=== PATIENT | male | born 1960 | race Caucasian/White ===

== ENCOUNTER → 2016-07-18 | Outpatient (REF) | payer MEDICAID ==
[2016-07-18 11:28] LABS: BASO % 0.7 % (0.0-1.0); EOS # 0.2 K/mm3 (0.0-0.50); EOS % 2.9 % (0.0-3.0); LARGE UNSTAINED CELL # 0.2 K/mm3 (0.0-0.4); LARGE UNSTAINED CELL % 2.7 % (0.0-4.0); LYMPH # 3.1 K/mm3 (1.5-4.5); LYMPH % 47.1 % (24.0-44.0); MEAN CORPUSCULAR HEMOGLOBIN 31.8 pg (27.0-33.0); MEAN CORPUSCULAR HGB CONC 33.5 g/dl (32.0-36.5); MEAN CORPUSCULAR VOLUME 95.1 fl (80.0-96.0); MONO # 0.5 K/mm3 (0.0-0.8); MONO % 7.4 % (0.0-5.0); NEUTROPHILS # 2.5 K/mm3 (1.8-7.7); NEUTROPHILS % 39.2 % (36.0-66.0); PLATELET COUNT, AUTOMATED 218 k/mm3 (150-450); RED CELL DISTRIBUTION WIDTH 12.5 % (11.5-14.5); WHITE BLOOD COUNT 6.5 K/mm3 (4.0-10.0)
[2016-07-18 11:41] LABS: ALBUMIN 4.1 GM/DL (3.2-5.2); ALBUMIN/GLOBULIN RATIO 1.37 (1.00-1.93); ALKALINE PHOSPHATASE 45 U/L (45-117); ALT/SGPT 27 U/L (12-78); ANION GAP 7 MEQ/L (8-16); AST/SGOT 15 U/L (15-37); BILIRUBIN,TOTAL 0.4 MG/DL (0.2-1.0); BLOOD UREA NITROGEN 14 MG/DL (7-18); CALCIUM LEVEL 8.5 MG/DL (8.5-10.1); CARBON DIOXIDE LEVEL 26 MEQ/L (21-32); CHLORIDE LEVEL 108 MEQ/L (98-107); CHOLESTEROL LEVEL 206 MG/DL (<200); CREATININE FOR GFR 1.19 MG/DL (0.70-1.30); GLOMERULAR FILTRATION RATE > 60.0 (>56); GLUCOSE, FASTING 92 MG/DL (70-105); POTASSIUM SERUM 4.4 MEQ/L (3.5-5.1); SODIUM LEVEL 141 MEQ/L (136-145); TOTAL PROTEIN 7.1 GM/DL (6.4-8.2); TRIGLYCERIDES LEVEL 270 MG/DL (<150)
[2016-07-18 11:52] LABS: VITAMIN B12 LEVEL 364 PG/ML (247-911)
== END ==
LOC: M SFHCPLAZ 09:35
PROVIDERS: ATTEND Family Medicine
DX: E53.8 Deficiency of other specified B group vitamins (principal); E78.2 Mixed hyperlipidemia; E55.9 Vitamin D deficiency, unspecified

== ENCOUNTER → 2016-07-25 | Outpatient (REF) | payer MEDICAID | LOC: M SFHCPLAZ 12:54 | PROVIDERS: ATTEND Family Medicine | DX: N40.1 Benign prostatic hyperplasia with lower urinary tract symptoms (principal) ==

== ENCOUNTER → 2016-12-16 | Outpatient (REF) | payer OTHER ==
[2016-12-16 14:04] LABS: ALBUMIN 4.4 GM/DL (3.2-5.2); ALBUMIN/GLOBULIN RATIO 1.38 (1.00-1.93); ALKALINE PHOSPHATASE 48 U/L (45-117); ALT/SGPT 23 U/L (12-78); ANION GAP 9 MEQ/L (8-16); AST/SGOT 13 U/L (15-37); BILIRUBIN,TOTAL 0.5 MG/DL (0.2-1.0); BLOOD UREA NITROGEN 15 MG/DL (7-18); CALCIUM LEVEL 10.2 MG/DL (8.5-10.1); CARBON DIOXIDE LEVEL 29 MEQ/L (21-32); CHLORIDE LEVEL 105 MEQ/L (98-107); CREATININE FOR GFR 1.13 MG/DL (0.70-1.30); GLOMERULAR FILTRATION RATE > 60.0 (>56); GLUCOSE, FASTING 84 MG/DL (70-105); POTASSIUM SERUM 4.5 MEQ/L (3.5-5.1); SODIUM LEVEL 143 MEQ/L (136-145); TOTAL PROTEIN 7.6 GM/DL (6.4-8.2)
[2016-12-16 14:31] LABS: MEAN CORPUSCULAR HEMOGLOBIN 33.1 pg (27.0-33.0); MEAN CORPUSCULAR HGB CONC 34.5 g/dl (32.0-36.5); RED CELL DISTRIBUTION WIDTH 12.6 % (11.5-14.5)
[2016-12-16 14:52] LABS: VITAMIN B12 LEVEL 261 PG/ML (247-911)
[2016-12-16 15:28] LABS: PRETREATED FOLATE FOR RBCFOL 11.5 NG/ML
== END ==
LOC: M SFHCPLAZ 11:15
PROVIDERS: ATTEND Family Medicine
DX: L29.9 Pruritus, unspecified (principal); N18.2 Chronic kidney disease, stage 2 (mild); R73.01 Impaired fasting glucose; E53.8 Deficiency of other specified B group vitamins

== ENCOUNTER → 2017-06-27 | Outpatient (CLI) | payer OTHER ==
[2017-06-27 13:58] LABS: BASO % 0.6 % (0.0-1.0); EOS # 0.3 10^3/uL (0.0-0.50); EOS % 4.4 % (0.0-3.0); HEMATOCRIT 42.9 % (42.0-52.0); HEMOGLOBIN 14.9 g/dl (14.0-18.0); IMMATURE GRANULOCYTE % 0.3 % (0-3.0); LYMPH # 2.3 10^3/uL (1.5-4.5); MEAN CORPUSCULAR HEMOGLOBIN 31.6 pg (27.0-33.0); MEAN CORPUSCULAR HGB CONC 34.7 g/dl (32.0-36.5); MEAN CORPUSCULAR VOLUME 91.1 fl (80.0-96.0); MONO # 0.7 10^3/uL (0.0-0.8); MONO % 10.3 % (0.0-5.0); NEUTROPHILS # 3.1 10^3/uL (1.8-7.7); NEUTROPHILS % 48.4 % (36.0-66.0); PLATELET COUNT, AUTOMATED 207 10^3/uL (150-450); RED BLOOD COUNT 4.71 10^6/uL (4.30-6.10); RED CELL DISTRIBUTION WIDTH 12.6 % (11.5-14.5); WHITE BLOOD COUNT 6.3 10^3/uL (4.0-10.0)
[2017-06-27 14:45] LABS: ALBUMIN 3.8 GM/DL (3.2-5.2); ALBUMIN/GLOBULIN RATIO 1.12 (1.00-1.93); ALKALINE PHOSPHATASE 59 U/L (45-117); ALT/SGPT 32 U/L (12-78); ANION GAP 8 MEQ/L (8-16); AST/SGOT 17 U/L (7-37); BILIRUBIN,TOTAL 0.3 MG/DL (0.2-1.0); BLOOD UREA NITROGEN 20 MG/DL (7-18); C REACTIVE PROTEIN QUANTITATIV < 0.30 MG/DL (0.00-0.30); CARBON DIOXIDE LEVEL 27 MEQ/L (21-32); CHLORIDE LEVEL 106 MEQ/L (98-107); CHOLESTEROL LEVEL 246 MG/DL (<200); CHOLESTEROL RISK RATIO 6.833 (<5); CPK CREATINE PHOSPHOKINASE 156 U/L (39-308); CREATININE FOR GFR 1.11 MG/DL (0.70-1.30); GLOMERULAR FILTRATION RATE > 60.0 (>56); GLUCOSE, FASTING 92 MG/DL (70-100); HDL CHOLESTEROL 36 MG/DL (>40); NON-HDL-C 210 MG/DL; POTASSIUM SERUM 4.4 MEQ/L (3.5-5.1); SODIUM LEVEL 141 MEQ/L (136-145); TOTAL PROTEIN 7.2 GM/DL (6.4-8.2); TRIGLYCERIDES LEVEL 722 MG/DL (<150)
[2017-06-28 11:15] LABS: ALBUMIN 4.59 GM/DL (3.29-5.55); ALBUMIN % 63.7 % (55.8-66.1); ALPHA-1-GLOBULIN % 3.5 % (2.9-4.9); ALPHA-1-GLOBULINS 0.25 GM/DL (0.17-0.41); BETA-1-GLOBULINS % 5.8 % (4.7-7.2); BETA-2-GLOBULINS % 4.8 % (3.2-6.5); GAMMA GLOBULIN % 13.2 % (11.1-18.8)
[2017-06-28 11:16] LABS: ALPHA-2-GLOBULINS 0.65 GM/DL (0.42-0.99); BETA-1-GLOBULINS 0.42 GM/DL (0.28-0.60); BETA-2-GLOBULINS 0.35 GM/DL (0.19-0.55); GAMMA GLOBULINS 0.95 GM/DL (0.65-1.58)
== END ==
LOC: M LAB 13:25
DX: D75.89 Other specified diseases of blood and blood-forming organs (principal); E78.2 Mixed hyperlipidemia; N18.2 Chronic kidney disease, stage 2 (mild)
CPT/HCPCS: 82550

== ENCOUNTER → 2017-07-19 | Outpatient (REF) | payer OTHER ==
[2017-07-19 14:01] LABS: APPEARANCE, URINE CLEAR (CLEAR); BACTERIA, URINE AUTO NEGATIVE (NEGATIVE); BILIRUBIN, URINE AUTO NEGATIVE (NEGATIVE); BLOOD, URINE BLOOD 1+ (NEGATIVE); COLOR, URINE STRAW (YELLOW); GLUCOSE, URINE (UA) AUTO NEGATIVE (NEGATIVE); KETONE, URINE AUTO NEGATIVE (NEGATIVE); LEUKOCYTE ESTERASE, URINE AUTO TRACE (NEGATIVE); NITRITE, URINE AUTO NEGATIVE (NEGATIVE); PROTEIN, URINE AUTO NEGATIVE (NEGATIVE); RBC, URINE AUTO 0 /HPF (0-3); SPECIFIC GRAVITY URINE AUTO 1.005 (1.002-1.035); SQUAMOUS EPITHELIAL CELL UR AU 0 /HPF (0-6); UROBILINOGEN, URINE AUTO 0.2 mg/dL (0.0-2.0); WBC, URINE AUTO 1 /HPF (0-3)
== END ==
LOC: M SFHCPLAZ 13:41
DX: R10.9 Unspecified abdominal pain (principal)

== ENCOUNTER → 2017-07-20 | Outpatient (CLI) | payer OTHER | LOC: M RAD 06:22 | DX: N28.1 Cyst of kidney, acquired (principal) | CPT/HCPCS: 74181 ==

== ENCOUNTER → 2017-07-20 | Outpatient (REF) | payer OTHER ==
[2017-07-20 13:04] LABS: AMYLASE 106 U/L (25-115); GAMMA GLUTAMYLTRANSPEPTIDASE 44 U/L (15-85); LIPASE 233 U/L (73-393)
[2017-07-21 11:31] LABS: CA19-9 TUMOR MARKER,CARBOHYDRA 4.1 U/ML (<35.0)
== END ==
LOC: M SFHCPLAZ 10:43
DX: M54.5 Low back pain (principal)
CPT/HCPCS: 82150

== ENCOUNTER 2017-08-17 08:00 | Day surgery (SDC) | payer OTHER ==
[2017-08-17] MEDS: NS 1,000 ML IV (09:00)
[2017-08-17] MEDS ORDERED: LIDOCAINE 2% INJ 100 MG/5 ML SDV (FOR ANES.) As Ordered (09:15)
[2017-08-17] MEDS ORDERED: PROPOFOL 200 MG/20 ML VIAL As Ordered ×2 (09:15)
== END 2017-08-17 10:33 | disposition home or self-care (01) ==
LOC: M OPP 08:00
DX: Z12.11 Encounter for screening for malignant neoplasm of colon (principal); D12.3 Benign neoplasm of transverse colon; D12.5 Benign neoplasm of sigmoid colon; K57.30 Diverticulosis of large intestine without perforation or abscess without bleeding; K64.8 Other hemorrhoids; K44.9 Diaphragmatic hernia without obstruction or gangrene; K21.9 Gastro-esophageal reflux disease without esophagitis; M19.90 Unspecified osteoarthritis, unspecified site; J44.9 Chronic obstructive pulmonary disease, unspecified; R06.83 Snoring; G47.30 Sleep apnea, unspecified; N18.2 Chronic kidney disease, stage 2 (mild); E53.8 Deficiency of other specified B group vitamins; N40.1 Benign prostatic hyperplasia with lower urinary tract symptoms; F12.10 Cannabis abuse, uncomplicated; Z88.8 Allergy status to other drugs, medicaments and biological substances; Z79.82 Long term (current) use of aspirin; Z79.899 Other long term (current) drug therapy
CPT/HCPCS: 45385

== ENCOUNTER → 2018-03-15 | Outpatient (REF) | payer OTHER ==
[2018-03-15 14:01] LABS: BASO # 0.1 10^3/uL (0.0-0.2); BASO % 0.8 % (0.0-1.0); EOS # 0.2 10^3/uL (0.0-0.50); EOS % 2.5 % (0.0-3.0); HEMATOCRIT 42.3 % (42.0-52.0); HEMOGLOBIN 14.6 g/dl (13.5-17.5); IMMATURE GRANULOCYTE % 0.3 % (0-3.0); LYMPH # 2.4 10^3/uL (1.5-4.5); LYMPH % 40.2 % (24.0-44.0); MEAN CORPUSCULAR HEMOGLOBIN 31.1 pg (27.0-33.0); MEAN CORPUSCULAR HGB CONC 34.5 g/dl (32.0-36.5); MEAN CORPUSCULAR VOLUME 90.2 fl (80.0-96.0); MONO # 0.5 10^3/uL (0.0-0.8); MONO % 8.2 % (0.0-5.0); NEUTROPHILS # 2.9 10^3/uL (1.8-7.7); PLATELET COUNT, AUTOMATED 229 10^3/uL (150-450); RED BLOOD COUNT 4.69 10^6/uL (4.30-6.10); RED CELL DISTRIBUTION WIDTH 13.2 % (11.5-14.5); RETIC HEMOGLOBIN EQUIVALENT 36.3 pg (24-36); RETICULOCYTE # 95.7 10^9/L (17-77); WHITE BLOOD COUNT 6.1 10^3/uL (4.0-10.0)
[2018-03-15 14:13] LABS: ALBUMIN 3.9 GM/DL (3.2-5.2); ALBUMIN/GLOBULIN RATIO 1.18 (1.00-1.93); ALKALINE PHOSPHATASE 66 U/L (45-117); ALT/SGPT 30 U/L (12-78); ANION GAP 8 MEQ/L (8-16); AST/SGOT 21 U/L (7-37); BILIRUBIN,TOTAL 0.4 MG/DL (0.2-1.0); BLOOD UREA NITROGEN 19 MG/DL (7-18); CARBON DIOXIDE LEVEL 29 MEQ/L (21-32); CHLORIDE LEVEL 105 MEQ/L (98-107); CREATININE FOR GFR 1.21 MG/DL (0.70-1.30); GLOMERULAR FILTRATION RATE > 60.0 (>56); GLUCOSE, FASTING 115 MG/DL (70-100); MAGNESIUM LEVEL 1.9 MG/DL (1.8-2.4); NT-PRO BNP 32 PG/ML (<125); POTASSIUM SERUM 3.6 MEQ/L (3.5-5.1); PROSTATIC SPECIFIC AG MONITOR 2.3 NG/ML (< 4.0); PTH INTACT 42.2 PG/ML (18.5-88.0); SODIUM LEVEL 142 MEQ/L (136-145); TOTAL 25(OH) VITAMIN D 90.6 NG/ML (30.0-100.0); TOTAL PROTEIN 7.2 GM/DL (6.4-8.2)
[2018-03-16 14:13] LABS: INSULIN LEVEL 118.7 uIU/mL (2.6-24.9)
== END ==
LOC: M SFHCPLAZ 11:13
DX: N18.2 Chronic kidney disease, stage 2 (mild) (principal); N40.1 Benign prostatic hyperplasia with lower urinary tract symptoms; R73.01 Impaired fasting glucose; I87.2 Venous insufficiency (chronic) (peripheral)
CPT/HCPCS: 83525

== ENCOUNTER → 2018-08-23 | Outpatient (CLI) | payer OTHER ==
[~2018-08-23] MED LIST: ASPI81TA85 PO; ATOR80TA59 PO; FOLI1TAB11 PO; VITA50005 PO
[2018-08-23 11:59] LABS: BASO % 0.8 % (0.0-1.0); EOS # 0.2 10^3/uL (0.0-0.50); EOS % 2.8 % (0.0-3.0); HEMOGLOBIN 13.5 g/dl (13.5-17.5); LYMPH % 38.5 % (24.0-44.0); MEAN CORPUSCULAR HGB CONC 33.8 g/dl (32.0-36.5); MEAN CORPUSCULAR VOLUME 91.7 fl (80.0-96.0); MONO # 0.6 10^3/uL (0.0-0.8); MONO % 10.4 % (0.0-5.0); NEUTROPHILS # 2.5 10^3/uL (1.8-7.7); NEUTROPHILS % 47.3 % (36.0-66.0); PLATELET COUNT, AUTOMATED 238 10^3/uL (150-450); RED BLOOD COUNT 4.36 10^6/uL (4.30-6.10); WHITE BLOOD COUNT 5.3 10^3/uL (4.0-10.0)
[2018-08-23 12:03] LABS: APPEARANCE, URINE CLEAR (CLEAR); BACTERIA, URINE AUTO NEGATIVE (NEGATIVE); BILIRUBIN, URINE AUTO NEGATIVE (NEGATIVE); BLOOD, URINE BLOOD NEGATIVE (NEGATIVE); COLOR, URINE YELLOW (YELLOW); GLUCOSE, URINE (UA) AUTO NEGATIVE (NEGATIVE); KETONE, URINE AUTO NEGATIVE (NEGATIVE); LEUKOCYTE ESTERASE, URINE AUTO NEGATIVE (NEGATIVE); MUCUS, URINE SMALL (NEGATIVE); NITRITE, URINE AUTO NEGATIVE (NEGATIVE); PROTEIN, URINE AUTO NEGATIVE (NEGATIVE); RBC, URINE AUTO 3 /HPF (0-3); SPECIFIC GRAVITY URINE AUTO 1.014 (1.002-1.035); SQUAMOUS EPITHELIAL CELL UR AU 0 /HPF (0-6); UROBILINOGEN, URINE AUTO 0.2 mg/dL (0.0-2.0); WBC, URINE AUTO 1 /HPF (0-3)
[2018-08-23 12:33] LABS: MALB URINE SIEMENS 6.6 MG/L; MAU/CREAT RATIO 5.1 MCG/MG (0.0-30.0)
[2018-08-23 12:50] LABS: HEMOGLOBIN A1c 5.7 %
== END ==
LOC: M LAB 11:16
PROVIDERS: ATTEND Family Medicine
DX: E53.8 Deficiency of other specified B group vitamins (principal); R73.01 Impaired fasting glucose; Z12.5 Encounter for screening for malignant neoplasm of prostate

== ENCOUNTER → 2018-09-20 | Outpatient (CLI) | payer OTHER ==
--- NOTE | 2018-09-20 08:51 | REP ---
Low-dose lung screening CT: The study is performed without IV contrast. The images are presented at lung windowing only. Comparison studies are the low-dose lung screening CT dated 07/10/2017, chest CT dated 04/26/[address] dated 03/24/2010. There is a pleural-based 4 mm nodule in the right upper lobe on image 37, unchanged from all prior studies. This is a category II lung nodule. There is a 4 mm lung nodule in the left upper lobe on image 39, unchanged from all prior studies in size, now containing small calcifications. This is a category II lung nodule. There is a tiny pleural based parenchymal scar in the right middle lobe on image 66, unchanged from all prior studies. This is a category II lesion. No new lung nodules are identified. There are no infiltrates or pleural effusions. Impression: There are three stable category II lung nodules, unchanged from all prior studies. The probability of malignancy is less than 1%. Depending on risk factors consider follow-up annual low-dose lung screening CT. Electronically Signed by Filiberto Lott MD 09/20/2018 08:42 A
== END ==
LOC: M RAD 07:37
PROVIDERS: ATTEND Family Medicine
DX: Z12.2 Encounter for screening for malignant neoplasm of respiratory organs (principal); Z87.891 Personal history of nicotine dependence; R91.8 Other nonspecific abnormal finding of lung field

== ENCOUNTER → 2019-01-08 | Outpatient (CLI) | payer OTHER ==
[2019-01-08 12:51] LABS: APPEARANCE, URINE CLEAR (CLEAR); BACTERIA, URINE AUTO NEGATIVE (NEGATIVE); BILIRUBIN, URINE AUTO NEGATIVE (NEGATIVE); BLOOD, URINE BLOOD 1+ (NEGATIVE); COLOR, URINE STRAW (YELLOW); GLUCOSE, URINE (UA) AUTO NEGATIVE (NEGATIVE); KETONE, URINE AUTO NEGATIVE (NEGATIVE); LEUKOCYTE ESTERASE, URINE AUTO NEGATIVE (NEGATIVE); NITRITE, URINE AUTO NEGATIVE (NEGATIVE); PROTEIN, URINE AUTO NEGATIVE (NEGATIVE); RBC, URINE AUTO 2 /HPF (0-3); SPECIFIC GRAVITY URINE AUTO 1.005 (1.002-1.035); SQUAMOUS EPITHELIAL CELL UR AU 0 /HPF (0-6); UROBILINOGEN, URINE AUTO 0.2 mg/dL (0.0-2.0); WBC, URINE AUTO 2 /HPF (0-3)
[2019-01-08 13:30] LABS: CREATININE, URINE 36.9 MG/DL; MALB URINE SIEMENS 6.5 MG/L; MAU/CREAT RATIO 17.6 MCG/MG (0.0-30.0)
[2019-01-08 13:47] LABS: ALBUMIN 4.3 GM/DL (3.2-5.2); ALT/SGPT 28 U/L (12-78); BILIRUBIN,TOTAL 0.5 MG/DL (0.2-1.0); BLOOD UREA NITROGEN 14 MG/DL (7-18); C REACTIVE PROTEIN QUANTITATIV < 0.30 MG/DL (0.00-0.30); CALCIUM LEVEL 9.8 MG/DL (8.5-10.1); CARBON DIOXIDE LEVEL 29 MEQ/L (21-32); CHLORIDE LEVEL 105 MEQ/L (98-107); CHOLESTEROL LEVEL 172 MG/DL (<200); CREATININE FOR GFR 1.17 MG/DL (0.70-1.30); FREE T4 1.02 NG/DL (0.76-1.46); GLOMERULAR FILTRATION RATE > 60.0 (>56); GLUCOSE, FASTING 91 MG/DL (70-100); HDL CHOLESTEROL 50 MG/DL (>40); LDL CHOLESTEROL 80 MG/DL (<100); MAGNESIUM LEVEL 2.1 MG/DL (1.8-2.4); NON-HDL-C 122 MG/DL; POTASSIUM SERUM 4.3 MEQ/L (3.5-5.1); SODIUM LEVEL 142 MEQ/L (136-145); TOTAL PROTEIN 7.7 GM/DL (6.4-8.2); TRIGLYCERIDES LEVEL 212 MG/DL (<150)
[2019-01-14 08:06] LABS: ANTI MAG LEVEL <1:10 titer (.)
== END ==
LOC: M LAB 12:17
PROVIDERS: ATTEND Family Medicine
DX: R73.01 Impaired fasting glucose (principal); E78.2 Mixed hyperlipidemia

== ENCOUNTER → 2019-06-11 | Outpatient (REF) | payer OTHER ==
[2019-06-11 11:54] LABS: BASO % 0.7 % (0.0-1.0); EOS # 0.1 10^3/uL (0.0-0.5); EOS % 1.7 % (0.0-3.0); HEMATOCRIT 45.7 % (42.0-52.0); HEMOGLOBIN 15.5 g/dl (13.5-17.5); LYMPH % 33.8 % (24.0-44.0); MEAN CORPUSCULAR HEMOGLOBIN 31.9 pg (27.0-33.0); MEAN CORPUSCULAR HGB CONC 33.9 g/dl (32.0-36.5); MONO # 0.7 10^3/uL (0.0-0.8); MONO % 11.9 % (0.0-5.0); NEUTROPHILS % 51.7 % (36.0-66.0); PLATELET COUNT, AUTOMATED 219 10^3/uL (150-450); RED BLOOD COUNT 4.86 10^6/uL (4.30-6.10); WHITE BLOOD COUNT 5.8 10^3/uL (4.0-10.0)
[2019-06-11 12:38] LABS: ALBUMIN 4.4 GM/DL (3.2-5.2); ALT/SGPT 38 U/L (12-78); BILIRUBIN,TOTAL 0.5 MG/DL (0.2-1.0); BLOOD UREA NITROGEN 19 MG/DL (7-18); CALCIUM LEVEL 9.6 MG/DL (8.8-10.2); CARBON DIOXIDE LEVEL 31 MEQ/L (21-32); CHLORIDE LEVEL 106 MEQ/L (98-107); CREATININE FOR GFR 1.15 MG/DL (0.70-1.30); FREE T4 1.21 NG/DL (0.76-1.46); GLOMERULAR FILTRATION RATE > 60.0 (>49); GLUCOSE, FASTING 74 MG/DL (70-100); POTASSIUM SERUM 4.4 MEQ/L (3.5-5.1); SODIUM LEVEL 141 MEQ/L (136-145); TOTAL PROTEIN 7.6 GM/DL (6.4-8.2); VITAMIN B12 LEVEL 790 PG/ML (247-911)
[2019-06-11 19:26] LABS: HEMOGLOBIN A1c 5.7 %
== END ==
LOC: M SFHCPLAZ 09:20
PROVIDERS: ATTEND Family Medicine
DX: E53.8 Deficiency of other specified B group vitamins (principal); R73.01 Impaired fasting glucose; E78.2 Mixed hyperlipidemia; Z12.5 Encounter for screening for malignant neoplasm of prostate

== ENCOUNTER → 2019-11-12 | Outpatient (CLI) | payer OTHER ==
[~2019-11-12] MED LIST changes: -ASPI81TA85 PO; +ASPI81TA86 PO
--- NOTE | 2019-12-25 10:50 | REP ---
LOW-DOSE NONCONTRAST SCREENING CHEST CT HISTORY: Personal history of nicotine dependence. COMPARISON: Made with multiple prior chest CT studies, the most recent of which is from 09/20/2018. CT FINDINGS: The previously noted 4-mm noncalcified pulmonary nodule in the left upper lobe is again seen on page 36 of 105 in series 201 of todays study. This is unchanged from 09/20/2018 and 07/10/2017 prior studies. No new pulmonary nodule is seen. There are focal linear areas of pleural parenchymal scarring in the right middle lobe and right upper lobe region unchanged from comparison studies as well. No new pulmonary nodule is appreciated. Vascular calcification again noted. IMPRESSION: Stable lung-RADS category 2 exam. Repeat screening study suggested in one year. MTDD
== END ==
LOC: M RAD 10:42
PROVIDERS: ATTEND Family Medicine
DX: Z12.2 Encounter for screening for malignant neoplasm of respiratory organs (principal)

== ENCOUNTER → 2019-12-30 | Outpatient (CLI) | payer OTHER ==
[2019-12-30 14:13] LABS: ALBUMIN 4.2 GM/DL (3.2-5.2); BILIRUBIN,TOTAL 0.6 MG/DL (0.2-1.0); CALCIUM LEVEL 9.7 MG/DL (8.8-10.2); CHOLESTEROL RISK RATIO 3.5 (<5); CREATININE FOR GFR 1.34 MG/DL (0.70-1.30); GLOMERULAR FILTRATION RATE 57.9 (>49); POTASSIUM SERUM 4.5 MEQ/L (3.5-5.1); TOTAL PROTEIN 7.3 GM/DL (6.4-8.2)
[2019-12-30 14:21] LABS: PTH INTACT 36.8 PG/ML (18.5-88.0)
[2019-12-30 14:36] LABS: HEMOGLOBIN A1c 5.4 %
== END ==
LOC: M PLALAB 11:13
PROVIDERS: ATTEND Family Medicine
DX: N18.2 Chronic kidney disease, stage 2 (mild) (principal); E78.2 Mixed hyperlipidemia; G62.9 Polyneuropathy, unspecified; E55.9 Vitamin D deficiency, unspecified; R73.09 Other abnormal glucose

== ENCOUNTER → 2020-05-18 | Outpatient (REF) | payer OTHER ==
[2020-05-18 10:45] LABS: BASO % 0.7 % (0.0-1.0); EOS # 0.1 10^3/uL (0.0-0.5); EOS % 1.6 % (0.0-3.0); HEMATOCRIT 44.1 % (42.0-52.0); LYMPH % 34.2 % (24.0-44.0); MEAN CORPUSCULAR HEMOGLOBIN 31.5 pg (27.0-33.0); MEAN CORPUSCULAR VOLUME 92.6 fl (80.0-96.0); MONO # 0.6 10^3/uL (0.0-0.8); MONO % 10.9 % (2.0-8.0); NEUTROPHILS % 52.2 % (36.0-66.0); PLATELET COUNT, AUTOMATED 208 10^3/uL (150-450); RED BLOOD COUNT 4.76 10^6/uL (4.30-6.10); WHITE BLOOD COUNT 5.7 10^3/uL (4.0-10.0)
[2020-05-18 11:11] LABS: HEMOGLOBIN A1c 5.3 %
[2020-05-18 11:26] LABS: ALBUMIN 4.2 GM/DL (3.2-5.2); ALT/SGPT 35 U/L (12-78); BILIRUBIN,TOTAL 0.5 MG/DL (0.2-1.0); BLOOD UREA NITROGEN 20 MG/DL (7-18); CALCIUM LEVEL 9.1 MG/DL (8.8-10.2); CARBON DIOXIDE LEVEL 25 MEQ/L (21-32); CHLORIDE LEVEL 109 MEQ/L (98-107); CREATININE FOR GFR 1.16 MG/DL (0.70-1.30); FERRITIN 51 NG/ML (26-388); GLOMERULAR FILTRATION RATE > 60.0 (>49); GLUCOSE, FASTING 100 MG/DL (70-100); POTASSIUM SERUM 4.5 MEQ/L (3.5-5.1); SODIUM LEVEL 141 MEQ/L (136-145); TOTAL PROTEIN 7.1 GM/DL (6.4-8.2)
[2020-05-18 11:30] LABS: VITAMIN B12 LEVEL 474 PG/ML (247-911)
== END ==
LOC: M SFHCPLAZ 08:29
PROVIDERS: ATTEND Family Medicine
DX: R73.01 Impaired fasting glucose (principal); N18.2 Chronic kidney disease, stage 2 (mild); E53.8 Deficiency of other specified B group vitamins; Z12.5 Encounter for screening for malignant neoplasm of prostate

== ENCOUNTER → 2020-10-09 | Outpatient (CLI) | payer OTHER ==
[2020-10-09 13:29] LABS: BASO % 0.5 % (0.0-1.0); EOS # 0.1 10^3/uL (0.0-0.5); EOS % 1.3 % (0.0-3.0); HEMATOCRIT 46.5 % (42.0-52.0); HEMOGLOBIN 15.9 g/dl (13.5-17.5); LYMPH # 2.1 10^3/uL (1.5-5.0); LYMPH % 34.5 % (24.0-44.0); MEAN CORPUSCULAR HEMOGLOBIN 31.7 pg (27.0-33.0); MEAN CORPUSCULAR HGB CONC 34.2 g/dl (32.0-36.5); MEAN CORPUSCULAR VOLUME 92.6 fl (80.0-96.0); MONO # 0.6 10^3/uL (0.0-0.8); MONO % 10.4 % (2.0-8.0); NEUTROPHILS # 3.3 10^3/uL (1.5-8.5); PLATELET COUNT, AUTOMATED 221 10^3/uL (150-450); RED BLOOD COUNT 5.02 10^6/uL (4.30-6.10); WHITE BLOOD COUNT 6.1 10^3/uL (4.0-10.0)
[2020-10-09 13:32] LABS: HEMATOCRIT 46.5 % (42.0-52.0)
[2020-10-09 14:15] LABS: ALBUMIN 4.5 GM/DL (3.2-5.2); ALT/SGPT 32 U/L (12-78); BILIRUBIN,TOTAL 0.7 MG/DL (0.2-1.0); BLOOD UREA NITROGEN 25 MG/DL (7-18); CALCIUM LEVEL 9.1 MG/DL (8.8-10.2); CARBON DIOXIDE LEVEL 28 MEQ/L (21-32); CHLORIDE LEVEL 106 MEQ/L (98-107); CHOLESTEROL LEVEL 164 MG/DL (<200); CHOLESTEROL RISK RATIO 3.904 (<5); CPK CREATINE PHOSPHOKINASE 116 U/L (39-308); FREE T4 1.07 NG/DL (0.76-1.46); GLOMERULAR FILTRATION RATE > 60.0 (>49); GLUCOSE, FASTING 105 MG/DL (70-100); HDL CHOLESTEROL 42 MG/DL (>40); LDL CHOLESTEROL 86 MG/DL (<100); NON-HDL-C 122 MG/DL; POTASSIUM SERUM 4.8 MEQ/L (3.5-5.1); PTH INTACT 52.6 PG/ML (18.5-88.0); SODIUM LEVEL 138 MEQ/L (136-145); TRIGLYCERIDES LEVEL 182 MG/DL (<150)
== END ==
LOC: M PLALAB 11:14
PROVIDERS: ATTEND Family Medicine
DX: E78.2 Mixed hyperlipidemia (principal); E55.9 Vitamin D deficiency, unspecified; E53.8 Deficiency of other specified B group vitamins; D75.89 Other specified diseases of blood and blood-forming organs

== ENCOUNTER → 2020-12-17 | Outpatient (CLI) | payer OTHER ==
[~2020-12-17] MED LIST changes: +ECOT81TA5 PO; +ERGO500029
== END ==
LOC: M LABSMTC 09:15
PROVIDERS: ATTEND Anesthesiology
DX: Z01.818 Encounter for other preprocedural examination (principal); Z11.52 Encounter for screening for COVID-19

== ENCOUNTER → 2020-12-22 | Day surgery (SDC) | payer OTHER ==
[~2020-12-22] VITALS: Ht 177.8 cm; Wt 78.0 kg
[~2020-12-22] MED LIST changes: +LIDOCAINE 2% 100MG/5ML SDV (FOR ANES.) As Ordered ONE; +NS 1,000 ML IV ONE; +propofoL 200 MG/20 ML VIAL As Ordered ONE
--- NOTE | 2020-12-22 10:46 | ROOR ---
Patient Name: Dalton Peters Procedure Date: 12/22/2020 10:23 AM Date of : 1960 Age: 60 Room: [facility] Gender: Male Note Status: Finalized Procedure: Colonoscopy Indications: High risk colon cancer surveillance: Personal history of colonic polyps, Last colonoscopy: August 2017 Providers: Kaleb Hartley MD Referring MD: Ankur Verde MD Requesting Provider: Medicines: Monitored Anesthesia Care Complications: No immediate complications. Procedure: Pre-Anesthesia Assessment: - The heart rate, respiratory rate, oxygen saturations, blood pressure, adequacy of pulmonary ventilation, and response to care were monitored throughout the procedure. The Colonoscope was introduced through the anus and advanced to the cecum, identified by appendiceal orifice and ileocecal valve. The colonoscopy was performed without difficulty. The patient tolerated the procedure well. The quality of the bowel preparation was good. Findings: The perianal and digital rectal examinations were normal. Three sessile polyps were found in the sigmoid colon and splenic flexure. The polyps were diminutive in size. These polyps were removed with a cold snare. Resection and retrieval were complete. Mild sigmoid diverticulosis and small internal hemorrhoids. The exam was otherwise without abnormality on direct and retroflexion views. Impression: - Three diminutive polyps in the sigmoid colon and at the splenic flexure, removed with a cold snare. Resected and retrieved. - Mild sigmoid diverticulosis and small internal hemorrhoids. - The examination was otherwise normal on direct and retroflexion views. Recommendation: - Repeat colonoscopy in 5 years for surveillance. Procedure Code(s): --- Professional --- 10958, Colonoscopy, flexible; with removal of tumor(s), polyp(s), or other lesion(s) by snare technique Diagnosis Code(s): --- Professional --- K63.5, Polyp of colon Z86.010, Personal history of colonic polyps CPT copyright 2019 [employer]. All rights reserved. The codes documented in this report are preliminary and upon dope house operator helper review may be revised to meet current compliance requirements. Kaleb Hartley MD Kaleb Hartley MD 12/22/2020 10:46:19 AM Electronically signed by Kaleb Hartley MD Number of Addenda: 0 Note Initiated On: 12/22/2020 10:23 AM Estimated Blood Loss: Estimated blood loss: none.
[2020-12-22 11:10] VITALS: BP 135/77
== END | disposition home or self-care (01) ==
LOC: M OPP 08:58
PROVIDERS: ATTEND Internal Medicine Gastroenterology
DX: Z12.11 Encounter for screening for malignant neoplasm of colon (principal); Z86.010 Personal history of colon polyps; D12.3 Benign neoplasm of transverse colon; D12.5 Benign neoplasm of sigmoid colon; K57.30 Diverticulosis of large intestine without perforation or abscess without bleeding; K64.8 Other hemorrhoids; G47.30 Sleep apnea, unspecified; Z79.82 Long term (current) use of aspirin; Z79.899 Other long term (current) drug therapy; Z88.8 Allergy status to other drugs, medicaments and biological substances

== ENCOUNTER → 2021-01-01 | Outpatient (CLI) | payer OTHER ==
[~2021-01-01] MED LIST changes: -LIDOCAINE 2% 100MG/5ML SDV (FOR ANES.) As Ordered ONE; -NS 1,000 ML IV ONE; -propofoL 200 MG/20 ML VIAL As Ordered ONE
--- NOTE | 2021-01-01 11:15 | REP ---
INDICATION: ENCOUNTER SCREENING FOR LUNG CA. COMPARISON: Multiple the latest 11/12/2019 also low-dose screening CT TECHNIQUE: Axial noncontrast images from the thoracic inlet to the upper abdomen using low-dose lung screening technique (LDCT). As per the protocol only lung window images were sent to the read station for interpretation FINDINGS: There is slight biapical pleuroparenchymal scarring status quo. There is a right upper lobe pleural base nodule status quo. There is a 4 mm size left upper lobe nodule status quo. There are no new abnormal nodules, masses, or opacities. There is minimal cylindrical bronchiectasis status quo. Grossly, the mediastinum and pulmonary swathi are unchanged. Grossly, the imaged upper abdomen and imaged osseous structures are unchanged. IMPRESSION: Stable lung rads category [address] low-dose screening CT examination of the lungs. <Electronically signed by Yemi Sanchez > 01/01/21 1111
== END ==
LOC: M RAD 10:55
PROVIDERS: ATTEND Family Medicine
DX: Z12.2 Encounter for screening for malignant neoplasm of respiratory organs (principal)

== ENCOUNTER → 2021-02-01 | Outpatient (CLI) | payer OTHER ==
[2021-02-01 15:19] LABS: BASO % 0.5 % (0.0-1.0); EOS # 0.1 10^3/uL (0.0-0.5); EOS % 2.1 % (0.0-3.0); HEMATOCRIT 47.5 % (42.0-52.0); HEMOGLOBIN 15.9 g/dl (13.5-17.5); LYMPH # 2.3 10^3/uL (1.5-5.0); LYMPH % 39.4 % (24.0-44.0); MEAN CORPUSCULAR HEMOGLOBIN 31.2 pg (27.0-33.0); MEAN CORPUSCULAR HGB CONC 33.5 g/dl (32.0-36.5); MEAN CORPUSCULAR VOLUME 93.3 fl (80.0-96.0); MONO # 0.5 10^3/uL (0.0-0.8); MONO % 9.2 % (2.0-8.0); NEUTROPHILS # 2.8 10^3/uL (1.5-8.5); NEUTROPHILS % 48.6 % (36.0-66.0); PLATELET COUNT, AUTOMATED 212 10^3/uL (150-450); RED BLOOD COUNT 5.09 10^6/uL (4.30-6.10); WHITE BLOOD COUNT 5.8 10^3/uL (4.0-10.0)
[2021-02-01 15:52] LABS: ALBUMIN 4.2 GM/DL (3.2-5.2); ALT/SGPT 31 U/L (12-78); BILIRUBIN,TOTAL 0.6 MG/DL (0.2-1.0); BLOOD UREA NITROGEN 19 MG/DL (7-18); CALCIUM LEVEL 9.3 MG/DL (8.8-10.2); CARBON DIOXIDE LEVEL 27 MEQ/L (21-32); CHLORIDE LEVEL 110 MEQ/L (98-107); CREATININE FOR GFR 1.17 MG/DL (0.70-1.30); FERRITIN 55 NG/ML (26-388); GLOMERULAR FILTRATION RATE > 60.0 (>49); GLUCOSE, FASTING 96 MG/DL (70-100); POTASSIUM SERUM 4.7 MEQ/L (3.5-5.1); SODIUM LEVEL 142 MEQ/L (136-145); TOTAL PROTEIN 7.1 GM/DL (6.4-8.2)
[2021-02-01 16:02] LABS: HEMOGLOBIN A1c 5.4 %
[2021-02-01 16:42] LABS: MALB URINE SIEMENS 15.8 MG/L; MAU/CREAT RATIO 7.9 MCG/MG (0.0-30.0)
== END ==
LOC: M PLALAB 09:01
PROVIDERS: ATTEND Family Medicine
DX: R73.01 Impaired fasting glucose (principal)

== ENCOUNTER → 2021-02-15 | Outpatient (REF) | payer OTHER | LOC: M SFHCPLAZ 13:36 | PROVIDERS: ATTEND Family Medicine | DX: C44.509 Unspecified malignant neoplasm of skin of other part of trunk (principal) ==

== ENCOUNTER → 2021-03-16 | Outpatient (REF) | payer OTHER | LOC: M SFHCPLAZ 10:27 | PROVIDERS: ATTEND Family Medicine | DX: C44.509 Unspecified malignant neoplasm of skin of other part of trunk (principal) ==

== ENCOUNTER → 2021-09-18 | Outpatient (CLI) | payer OTHER ==
[2021-09-18 14:22] LABS: HEMOGLOBIN A1c 5.3 %
[2021-09-18 14:26] LABS: ALBUMIN 3.8 GM/DL (3.2-5.2); BILIRUBIN,TOTAL 0.4 MG/DL (0.2-1.0); CALCIUM LEVEL 8.5 MG/DL (8.8-10.2); CREATININE FOR GFR 1.31 MG/DL (0.70-1.30); POTASSIUM SERUM 4.2 MEQ/L (3.5-5.1); TOTAL PROTEIN 6.7 GM/DL (6.4-8.2)
[2021-09-20 08:52] LABS: PTH INTACT 65.6 PG/ML (18.5-88.0); TOTAL 25(OH) VITAMIN D 46.4 NG/ML (30.0-100.0)
== END ==
LOC: M LAB 13:22
PROVIDERS: ATTEND Family Medicine
DX: N18.31 Chronic kidney disease, stage 3a (principal); R73.01 Impaired fasting glucose; E55.9 Vitamin D deficiency, unspecified; E53.8 Deficiency of other specified B group vitamins

== ENCOUNTER → 2021-09-21 | Outpatient (REF) | payer OTHER | LOC: M SFHCPLAZ 17:22 | PROVIDERS: ATTEND Family Medicine | DX: L83 Acanthosis nigricans (principal) ==

== ENCOUNTER → 2022-02-15 | Outpatient (CLI) | payer OTHER ==
[2022-02-15 09:44] LABS: BASO % 0.5 % (0.0-1.0); EOS # 0.1 10^3/uL (0.0-0.5); EOS % 1.5 % (0.0-3.0); HEMATOCRIT 46.2 % (42.0-52.0); HEMOGLOBIN 16.1 g/dl (13.5-17.5); LYMPH # 2.2 10^3/uL (1.5-5.0); MEAN CORPUSCULAR HEMOGLOBIN 32.1 pg (27.0-33.0); MEAN CORPUSCULAR HGB CONC 34.8 g/dl (32.0-36.5); MONO # 0.5 10^3/uL (0.0-0.8); MONO % 8.7 % (2.0-8.0); NEUTROPHILS # 3.2 10^3/uL (1.5-8.5); PLATELET COUNT, AUTOMATED 216 10^3/uL (150-450); RED BLOOD COUNT 5.02 10^6/uL (4.30-6.10); WHITE BLOOD COUNT 6.1 10^3/uL (4.0-10.0)
[2022-02-15 09:45] LABS: HEMATOCRIT 46.2 % (42.0-52.0)
[2022-02-15 18:11] LABS: ALBUMIN 4.4 G/DL (3.2-5.2); ALT/SGPT 28 U/L (7.0-40); BILIRUBIN,TOTAL 0.8 MG/DL (0.3-1.2); BLOOD UREA NITROGEN 19 MG/DL (9-23); CALCIUM LEVEL 9.3 MG/DL (8.3-10.6); CARBON DIOXIDE LEVEL 25 MMOL/L (20-31); CHLORIDE LEVEL 106 MMOL/L (98-107); CHOLESTEROL LEVEL 147 MG/DL (<200); CHOLESTEROL RISK RATIO 3.48 (<5); CREATININE FOR GFR 1.12 MG/DL (0.70-1.30); FERRITIN 56.8 NG/ML (10.5-307.3); GLOMERULAR FILTRATION RATE > 60.0 (>49); GLUCOSE, FASTING 92 MG/DL (74-106); HDL CHOLESTEROL 42.2 MG/DL (>40); LDL CHOLESTEROL 64.4 MG/DL (<100); NON-HDL-C 105 MG/DL; POTASSIUM SERUM 4.6 MMOL/L (3.5-5.1); SODIUM LEVEL 141 MMOL/L (136-145); TOTAL PROTEIN 6.8 G/DL; TRIGLYCERIDES LEVEL 202 MG/DL (<150); VITAMIN B12 LEVEL 590 PG/ML (211-911)
== END ==
LOC: M LAB 08:52
PROVIDERS: ATTEND Family Medicine
DX: D75.89 Other specified diseases of blood and blood-forming organs (principal)

== ENCOUNTER → 2022-03-07 | Outpatient (CLI) | payer OTHER | LOC: M RAD 07:56 | PROVIDERS: ATTEND Family Medicine | DX: Z12.2 Encounter for screening for malignant neoplasm of respiratory organs (principal) ==

== ENCOUNTER → 2022-04-28 | Outpatient (CLI) | payer OTHER ==
[2022-04-28 15:41] LABS: BASO % 0.4 % (0.0-1.0); EOS # 0.1 10^3/uL (0.0-0.5); EOS % 1.6 % (0.0-3.0); HEMATOCRIT 46.4 % (42.0-52.0); HEMOGLOBIN 15.5 g/dl (13.5-17.5); LYMPH # 2.4 10^3/uL (1.5-5.0); LYMPH % 34.5 % (24.0-44.0); MEAN CORPUSCULAR HEMOGLOBIN 31.4 pg (27.0-33.0); MEAN CORPUSCULAR HGB CONC 33.4 g/dl (32.0-36.5); MEAN CORPUSCULAR VOLUME 94.1 fl (80.0-96.0); MONO # 0.6 10^3/uL (0.0-0.8); MONO % 8.5 % (2.0-8.0); NEUTROPHILS # 3.8 10^3/uL (1.5-8.5); NEUTROPHILS % 54.6 % (36.0-66.0); PLATELET COUNT, AUTOMATED 249 10^3/uL (150-450); RED BLOOD COUNT 4.93 10^6/uL (4.30-6.10)
[2022-04-28 16:12] LABS: ALBUMIN 4.1 G/DL (3.2-5.2); ALKALINE PHOSPHATASE 79 U/L (46-116); ALT/SGPT 28 U/L (7.0-40); AST/SGOT 27 U/L (<34); BILIRUBIN,TOTAL 0.7 MG/DL (0.3-1.2); BLOOD UREA NITROGEN 20 MG/DL (9-23); CALCIUM LEVEL 9.2 MG/DL (8.3-10.6); CARBON DIOXIDE LEVEL 28 MMOL/L (20-31); CHLORIDE LEVEL 106 MMOL/L (98-107); COMPLEMENT C4 34.7 MG/DL (12-36); CREATININE FOR GFR 1.04 MG/DL (0.70-1.30); GLOMERULAR FILTRATION RATE > 60.0 (>49); GLUCOSE, FASTING 94 MG/DL (74-106); POTASSIUM SERUM 4.4 MMOL/L (3.5-5.1); SODIUM LEVEL 142 MMOL/L (136-145); TOTAL PROTEIN 6.9 G/DL (5.7-8.2)
[2022-04-28 16:13] LABS: THYROID PEROXIDASE ANTIBODY < 28.0 U/ML (<60.0)
[2022-04-28 16:14] LABS: IMMUNOGLOBULIN E 572.5 IU/ML (0-378)
== END ==
LOC: M PLALAB 12:32
PROVIDERS: ATTEND Family Medicine
DX: L50.9 Urticaria, unspecified (principal)

== ENCOUNTER → 2022-05-10 | Outpatient (CLI) | payer OTHER | LOC: M LAB 11:00 | PROVIDERS: ATTEND Physician Assistant | DX: R09.89 Other specified symptoms and signs involving the circulatory and respiratory systems (principal) ==

== ENCOUNTER → 2022-09-12 | Outpatient (CLI) | payer OTHER ==
[2022-09-12 10:04] LABS: BASO % 0.6 % (0.0-1.0); EOS # 0.1 10^3/uL (0.0-0.5); HEMATOCRIT 48.1 % (42.0-52.0); HEMOGLOBIN 16.2 g/dl (13.5-17.5); LYMPH # 2.5 10^3/uL (1.5-5.0); LYMPH % 35.6 % (24.0-44.0); MEAN CORPUSCULAR HEMOGLOBIN 31.2 pg (27.0-33.0); MEAN CORPUSCULAR HGB CONC 33.7 g/dl (32.0-36.5); MEAN CORPUSCULAR VOLUME 92.5 fl (80.0-96.0); MONO # 0.7 10^3/uL (0.0-0.8); MONO % 9.5 % (2.0-8.0); NEUTROPHILS # 3.7 10^3/uL (1.5-8.5); NEUTROPHILS % 52.9 % (36.0-66.0); PLATELET COUNT, AUTOMATED 214 10^3/uL (150-450); WHITE BLOOD COUNT 7.1 10^3/uL (4.0-10.0)
[2022-09-12 10:25] LABS: LIPASE 36 U/L (12-53)
[2022-09-12 10:27] LABS: ALBUMIN 4.2 G/DL (3.2-5.2); ALKALINE PHOSPHATASE 60 U/L (46-116); ALT/SGPT 19 U/L (7.0-40); AST/SGOT 11 U/L (<34); BILIRUBIN,TOTAL 0.7 MG/DL (0.3-1.2); BLOOD UREA NITROGEN 21 MG/DL (9-23); CALCIUM LEVEL 9.1 MG/DL (8.3-10.6); CARBON DIOXIDE LEVEL 26 MMOL/L (20-31); CHLORIDE LEVEL 108 MMOL/L (98-107); CREATININE FOR GFR 1.18 MG/DL (0.70-1.30); GLOMERULAR FILTRATION RATE > 60.0 (>49); GLUCOSE, FASTING 87 MG/DL (74-106); POTASSIUM SERUM 3.9 MMOL/L (3.5-5.1); SODIUM LEVEL 142 MMOL/L (136-145); TOTAL PROTEIN 6.5 G/DL (5.7-8.2)
== END ==
LOC: M LAB 08:57
PROVIDERS: ATTEND Family Medicine
DX: R11.0 Nausea (principal)

== ENCOUNTER → 2023-01-16 | Outpatient (CLI) | payer OTHER ==
[2023-01-16 16:24] LABS: BASO % 0.4 % (0.0-1.0); EOS # 0.1 10^3/uL (0.0-0.5); HEMATOCRIT 46.2 % (42.0-52.0); HEMATOCRIT 47.6 % (42.0-52.0); HEMOGLOBIN 16.1 g/dl (13.5-17.5); LYMPH # 2.2 10^3/uL (1.5-5.0); LYMPH % 31.4 % (24.0-44.0); MEAN CORPUSCULAR HEMOGLOBIN 32.2 pg (27.0-33.0); MEAN CORPUSCULAR HGB CONC 33.8 g/dl (32.0-36.5); MEAN CORPUSCULAR VOLUME 95.2 fl (80.0-96.0); MONO # 0.6 10^3/uL (0.0-0.8); MONO % 8.6 % (2.0-8.0); NEUTROPHILS # 4.1 10^3/uL (1.5-8.5); NEUTROPHILS % 58.3 % (36.0-66.0); PLATELET COUNT, AUTOMATED 210 10^3/uL (150-450); WHITE BLOOD COUNT 7.1 10^3/uL (4.0-10.0)
[2023-01-16 16:57] LABS: ALBUMIN 4.2 G/DL (3.2-5.2); ALKALINE PHOSPHATASE 57 U/L (46-116); ALT/SGPT 22 U/L (7.0-40); AST/SGOT 16 U/L (<34); BILIRUBIN,TOTAL 0.4 MG/DL (0.3-1.2); BLOOD UREA NITROGEN 22 MG/DL (9-23); CALCIUM LEVEL 9.8 MG/DL (8.3-10.6); CARBON DIOXIDE LEVEL 29 MMOL/L (20-31); CHLORIDE LEVEL 106 MMOL/L (98-107); CREATININE FOR GFR 1.12 MG/DL (0.70-1.30); GLOMERULAR FILTRATION RATE > 60.0 (>49); GLUCOSE, FASTING 89 MG/DL (74-106); POTASSIUM SERUM 4.6 MMOL/L (3.5-5.1); SODIUM LEVEL 140 MMOL/L (136-145); TOTAL PROTEIN 6.9 G/DL (5.7-8.2); VITAMIN B12 LEVEL 404 PG/ML (211-911)
[2023-01-16 16:58] LABS: FERRITIN 44.2 NG/ML (10.5-307.3)
[2023-01-19 23:08] LABS: TISSUE TRANSGLUTAMINASE IgA <2 U/mL (0-3)
== END ==
LOC: M PLALAB 13:25
PROVIDERS: ATTEND Family Medicine
DX: D50.9 Iron deficiency anemia, unspecified (principal)

== ENCOUNTER → 2023-01-16 | Outpatient (REF) | payer OTHER | LOC: M SFHCPLAZ 12:40 | PROVIDERS: ATTEND Family Medicine | DX: Z53.9 Procedure and treatment not carried out, unspecified reason (principal) ==

== ENCOUNTER → 2023-02-21 | Outpatient (CLI) | payer OTHER ==
[~2023-02-21] MED LIST changes: +E-Z-GAS II EFFERVESCENT PACKET (SODIUM BICARB./CITRIC ACID/SIMETHICONE) As Ordered ONE; +E-Z-HD 98% w/w 340GM SUSP BTL As Ordered ONE; +E-Z-PAQUE 96% w/w SUSP 176GM BTL As Ordered ONE
== END ==
LOC: M RAD 07:12
PROVIDERS: ATTEND Family Medicine
DX: R10.13 Epigastric pain (principal)

== ENCOUNTER → 2023-03-24 | Outpatient (CLI) | payer OTHER ==
[~2023-03-24] MED LIST changes: -E-Z-GAS II EFFERVESCENT PACKET (SODIUM BICARB./CITRIC ACID/SIMETHICONE) As Ordered ONE; -E-Z-HD 98% w/w 340GM SUSP BTL As Ordered ONE; -E-Z-PAQUE 96% w/w SUSP 176GM BTL As Ordered ONE; +GASTROGRAFIN SOLUTION 30ML As Ordered ONE; +ISOVUE-370 76% 100ML VIAL As Ordered ONE
== END ==
LOC: M RAD 12:43
PROVIDERS: ATTEND Physician Assistant Medical
DX: R11.0 Nausea (principal); R10.30 Lower abdominal pain, unspecified
CPT/HCPCS: 74178; Q9963; Q9967

== ENCOUNTER → 2023-04-24 | Outpatient (CLI) | payer OTHER ==
[~2023-04-24] MED LIST changes: -GASTROGRAFIN SOLUTION 30ML As Ordered ONE; -ISOVUE-370 76% 100ML VIAL As Ordered ONE
== END ==
LOC: M RAD 09:26
PROVIDERS: ATTEND Family Medicine
DX: Z87.891 Personal history of nicotine dependence (principal)

== ENCOUNTER 2023-05-23 09:31 | Day surgery (SDC) | payer OTHER ==
[~2023-05-23] VITALS: Ht 177.8 cm; Wt 77.1 kg
[~2023-05-23 09:31] MED LIST changes: +BACL10TA2 PO; -ERGO500029; +ERGO500029 PO; +FURO20TA2 PO; +LIDOCAINE 2% 100MG/5ML SDV (FOR ANES.) As Ordered ONE; +LORA-1041 PO; +PANT40TA29 PO; +propofoL 200 MG/20 ML VIAL As Ordered ONE
[2023-05-23] MEDS: NS 1,000 ML IV ONE (10:25)
[2023-05-23] MEDS ORDERED: fentaNYL 100 MCG/2 ML INJECTION As Ordered ONE (11:28)
[2023-05-23 11:48] VITALS: TEMP 97.7
[2023-05-23 12:08] VITALS: BP 117/64; O2SAT 97
== END 2023-05-23 12:20 | disposition home or self-care (01) ==
LOC: M OPP 09:31
PROVIDERS: ATTEND Internal Medicine Gastroenterology
DX: D12.5 Benign neoplasm of sigmoid colon (principal); K57.30 Diverticulosis of large intestine without perforation or abscess without bleeding; K64.8 Other hemorrhoids; R19.4 Change in bowel habit; K22.89 Other specified disease of esophagus; R11.0 Nausea; R10.13 Epigastric pain; Z87.891 Personal history of nicotine dependence; G47.30 Sleep apnea, unspecified; Z79.02 Long term (current) use of antithrombotics/antiplatelets; Z79.891 Long term (current) use of opiate analgesic; Z79.899 Other long term (current) drug therapy; Z88.8 Allergy status to other drugs, medicaments and biological substances
CPT/HCPCS: 43239; 45385; 88305; J3010

== ENCOUNTER → 2023-06-07 | Outpatient (CLI) | payer OTHER ==
[~2023-06-07] MED LIST changes: -LIDOCAINE 2% 100MG/5ML SDV (FOR ANES.) As Ordered ONE; -propofoL 200 MG/20 ML VIAL As Ordered ONE
[2023-06-07 10:16] LABS: LIPASE 50 U/L (12-53)
[2023-06-07 10:18] LABS: AMYLASE 161 U/L (30-118)
== END ==
LOC: M LAB 08:36
PROVIDERS: ATTEND Physician Assistant Medical
DX: R74.8 Abnormal levels of other serum enzymes (principal)

== ENCOUNTER → 2023-08-21 | Outpatient (REF) | payer OTHER | LOC: M SFHCPLAZ 09:35 | PROVIDERS: ATTEND Family Medicine | DX: D50.9 Iron deficiency anemia, unspecified (principal); E78.2 Mixed hyperlipidemia; R73.01 Impaired fasting glucose ==

== ENCOUNTER → 2023-08-21 | Outpatient (CLI) | payer OTHER ==
[2023-08-21 12:52] LABS: BASO % 0.6 % (0.0-1.0); EOS # 0.1 10^3/uL (0.0-0.5); EOS % 1.1 % (0.0-3.0); HEMATOCRIT 47.3 % (42.0-52.0); HEMOGLOBIN 16.2 g/dl (13.5-17.5); LYMPH # 2.6 10^3/uL (1.5-5.0); LYMPH % 37.1 % (24.0-44.0); MEAN CORPUSCULAR HEMOGLOBIN 32.2 pg (27.0-33.0); MEAN CORPUSCULAR HGB CONC 34.2 g/dl (32.0-36.5); MONO # 0.8 10^3/uL (0.0-0.8); NEUTROPHILS # 3.5 10^3/uL (1.5-8.5); NEUTROPHILS % 50.1 % (36.0-66.0); PLATELET COUNT, AUTOMATED 225 10^3/uL (150-450); RED BLOOD COUNT 5.03 10^6/uL (4.30-6.10)
[2023-08-21 13:03] LABS: HEMOGLOBIN A1c 5.3 % (4.0-6.0)
[2023-08-21 13:27] LABS: CHOLESTEROL RISK RATIO 4.14 (<5); HDL CHOLESTEROL 44.2 MG/DL (>40); LDL CHOLESTEROL 91.2 MG/DL (<100); NON-HDL-C 138.8 MG/DL
[2023-08-21 13:29] LABS: FREE T4 1.34 NG/DL (0.89-1.76); THYROID STIMULATING HORMONE 1.797 uIU/ML (0.55-4.78)
[2023-08-21 13:30] LABS: FERRITIN 44.7 NG/ML (10.5-307.3)
== END ==
LOC: M PLALAB 09:45
PROVIDERS: ATTEND Family Medicine
DX: R73.01 Impaired fasting glucose (principal)

== ENCOUNTER → 2024-01-10 | Outpatient (CLI) | payer OTHER ==
[2024-01-10 15:02] LABS: BASO # 0.1 10^3/uL (0.0-0.2); BASO % 0.7 % (0.0-1.0); EOS # 0.2 10^3/uL (0.0-0.5); EOS % 2.1 % (0.0-3.0); HEMATOCRIT 44.5 % (42.0-52.0); HEMOGLOBIN 15.2 g/dl (13.5-17.5); LYMPH # 2.4 10^3/uL (1.5-5.0); LYMPH % 34.6 % (24.0-44.0); MEAN CORPUSCULAR HEMOGLOBIN 32.4 pg (27.0-33.0); MEAN CORPUSCULAR HGB CONC 34.2 g/dl (32.0-36.5); MEAN CORPUSCULAR VOLUME 94.9 fl (80.0-96.0); MONO # 0.8 10^3/uL (0.0-0.8); MONO % 10.7 % (2.0-8.0); NEUTROPHILS # 3.6 10^3/uL (1.5-8.5); NEUTROPHILS % 51.6 % (36.0-66.0); PLATELET COUNT, AUTOMATED 214 10^3/uL (150-450); RED BLOOD COUNT 4.69 10^6/uL (4.30-6.10)
[2024-01-10 15:13] LABS: HEMOGLOBIN A1c 5.3 % (4.0-6.0)
[2024-01-10 15:32] LABS: PSA SCREENING 1.21 NG/ML (< 4.00)
[2024-01-10 15:35] LABS: PTH INTACT 75.9 PG/ML (18.5-88.0)
[2024-01-10 15:36] LABS: FERRITIN 46.9 NG/ML (10.5-307.3); TOTAL 25(OH) VITAMIN D 83.6 NG/ML (20.0-100.0)
== END ==
LOC: M PLALAB 14:01
PROVIDERS: ATTEND Family Medicine
DX: D50.9 Iron deficiency anemia, unspecified (principal)

== ENCOUNTER → 2024-05-02 | Outpatient (CLI) | payer MEDICARE, MEDICAID | LOC: M RAD 07:51 | PROVIDERS: ATTEND Family Medicine | DX: Z12.2 Encounter for screening for malignant neoplasm of respiratory organs (principal); Z87.891 Personal history of nicotine dependence; R91.1 Solitary pulmonary nodule ==

== ENCOUNTER → 2024-05-11 | Outpatient (CLI) | payer MEDICARE, MEDICAID ==
[2024-05-11 08:38] LABS: BASO % 0.7 % (0.0-1.0); EOS # 0.2 10^3/uL (0.0-0.5); EOS % 3.1 % (0.0-3.0); HEMATOCRIT 46.1 % (42.0-52.0); HEMOGLOBIN 15.4 g/dl (13.5-17.5); LYMPH # 2.1 10^3/uL (1.5-5.0); LYMPH % 36.1 % (24.0-44.0); MEAN CORPUSCULAR HEMOGLOBIN 31.5 pg (27.0-33.0); MEAN CORPUSCULAR HGB CONC 33.4 g/dl (32.0-36.5); MEAN CORPUSCULAR VOLUME 94.3 fl (80.0-96.0); MONO # 0.6 10^3/uL (0.0-0.8); MONO % 9.4 % (2.0-8.0); NEUTROPHILS % 50.5 % (36.0-66.0); PLATELET COUNT, AUTOMATED 212 10^3/uL (150-450); RED BLOOD COUNT 4.89 10^6/uL (4.30-6.10); WHITE BLOOD COUNT 5.8 10^3/uL (4.0-10.0)
[2024-05-11 09:08] LABS: ALBUMIN 4.1 G/DL (3.2-5.2); ALKALINE PHOSPHATASE 66 U/L (40-129); ALT/SGPT 37 U/L (7.0-40); AST/SGOT 27 U/L (<34); BILIRUBIN,TOTAL 0.6 MG/DL (0.3-1.2); BLOOD UREA NITROGEN 15 MG/DL (9-23); CALCIUM LEVEL 9.3 MG/DL (8.3-10.6); CARBON DIOXIDE LEVEL 30 MMOL/L (20-31); CHLORIDE LEVEL 107 MMOL/L (98-107); CHOLESTEROL LEVEL 154 MG/DL (<200); CHOLESTEROL RISK RATIO 3.27 (<5); CREATININE FOR GFR 1.08 MG/DL (0.70-1.30); GLOMERULAR FILTRATION RATE > 60.0 (>49); GLUCOSE, FASTING 96 MG/DL (74-106); LDL CHOLESTEROL 69.2 MG/DL (<100); POTASSIUM SERUM 4.7 MMOL/L (3.5-5.1); PTH INTACT 43.9 PG/ML (18.5-88.0); SODIUM LEVEL 142 MMOL/L (136-145); TOTAL PROTEIN 6.9 G/DL (5.7-8.2); TRIGLYCERIDES LEVEL 189 MG/DL (<150)
[2024-05-11 09:09] LABS: TOTAL 25(OH) VITAMIN D 71.6 NG/ML (20.0-100.0)
[2024-05-11 09:10] LABS: VITAMIN B12 LEVEL 395 PG/ML (211-911)
== END ==
LOC: M LAB 08:14
PROVIDERS: ATTEND Family Medicine
DX: D50.9 Iron deficiency anemia, unspecified (principal); E78.00 Pure hypercholesterolemia, unspecified; Z79.899 Other long term (current) drug therapy

== ENCOUNTER → 2024-07-16 | Outpatient (CLI) | payer MEDICARE, MEDICAID | LOC: M CARPUL 14:06 | PROVIDERS: ATTEND Family Medicine | DX: R07.9 Chest pain, unspecified (principal); I25.10 Atherosclerotic heart disease of native coronary artery without angina pectoris ==

== ENCOUNTER → 2024-07-24 | Outpatient (CLI) | payer MEDICARE, MEDICAID | LOC: M CARPUL 07:27 | PROVIDERS: ATTEND Family Medicine | DX: I25.10 Atherosclerotic heart disease of native coronary artery without angina pectoris (principal) ==

== ENCOUNTER → 2024-11-18 | Outpatient (CLI) | payer MEDICARE, MEDICAID ==
[2024-11-18 10:52] LABS: ALT/SGPT 21.0 U/L (7.0-40); AST/SGOT 22.0 U/L (<34); CALCIUM LEVEL 9.1 MG/DL (8.3-10.6); CARBON DIOXIDE LEVEL 28.0 MMOL/L (20-31); CHLORIDE LEVEL 107.0 MMOL/L (98-107); CHOLESTEROL LEVEL 130.0 MG/DL (<200); CHOLESTEROL RISK RATIO 3.52 (<5); CREATININE FOR GFR 1.15 MG/DL (0.70-1.30); GLOMERULAR FILTRATION RATE 70.6 (>49); LDL CHOLESTEROL 52.3 MG/DL (<100); NON-HDL-C 93.1 MG/DL; POTASSIUM SERUM 4.7 MMOL/L (3.5-5.1); SODIUM LEVEL 144.0 MMOL/L (136-145); TRIGLYCERIDES LEVEL 204.0 MG/DL (<150)
[2024-11-18 10:54] LABS: FREE T4 1.31 NG/DL (0.89-1.76)
== END ==
LOC: M LAB 09:16
PROVIDERS: ATTEND Internal Medicine Cardiovascular Disease
DX: E78.5 Hyperlipidemia, unspecified (principal)

== ENCOUNTER → 2024-12-20 | Outpatient (CLI) | payer MEDICARE, MEDICAID | LOC: M RAD 10:31 | PROVIDERS: ATTEND Physician Assistant | DX: I73.9 Peripheral vascular disease, unspecified (principal); I25.119 Atherosclerotic heart disease of native coronary artery with unspecified angina pectoris; G62.9 Polyneuropathy, unspecified; R22.42 Localized swelling, mass and lump, left lower limb ==

== ENCOUNTER → 2025-02-26 | Outpatient (CLI) | payer MEDICARE, MEDICAID ==
[2025-02-26 13:30] LABS: RHEUMATOID FACTOR QUANT 5.5 IU/ML (<14)
[2025-02-26 13:31] LABS: FREE T4 1.24 NG/DL (0.89-1.76)
[2025-02-26 13:32] LABS: VITAMIN B12 LEVEL 450 PG/ML (211-911)
[2025-02-27 09:07] LABS: T P ELECTROPHORESIS SO 7.3 g/dL (6.1-8.1)
[2025-02-28 11:37] LABS: CARDIOLIPIN IGA ANTIBODY < 2.0 APL-U/mL (<20.0); CARDIOLIPIN IGG ANTIBODY < 2.0 GPL-U/mL (<20.0); CARDIOLIPIN IGM ANTIBODY < 2.0 MPL-U/mL (<20.0)
[2025-02-28 15:42] LABS: ANGIOTENSIN 1 CONVERTING ENZYM 25 U/L (9-67)
[2025-03-01 21:28] LABS: LYME TOTAL ANTIBODY CIA <= 0.90 Index (<=0.90)
[2025-03-02 14:27] LABS: VITAMIN B6,PYRIDOXAL PHOSPHATE 11.9 ng/mL (2.1-21.7)
[2025-03-03 07:36] LABS: ALBUMIN SPEP 4.4 g/dL (3.8-4.8); ALPHA-1-GLOBULINS SO 0.3 g/dL (0.2-0.3); ALPHA-2-GLOBULINS SO 0.8 g/dL (0.5-0.9); BETA 2 GLOBULIN 0.5 g/dL (0.2-0.5); BETA-GLOBULIN SO 0.5 g/dL (0.4-0.6); GAMMA GLOBULINS SO 0.9 g/dL (0.8-1.7)
[2025-03-04 07:47] LABS: VITAMIN E(ALPHA TOCOPHEROL) 15.0 mg/L (5.7-19.9); VITAMIN E(GAMMA TOCOPHEROL) < 1.0 mg/L (<=4.3)
[2025-03-04 18:28] LABS: VITAMIN B1 LEVEL WHOLE BLOOD 175 nmol/L (78-185)
== END ==
LOC: M LAB 11:01
PROVIDERS: ATTEND Psychiatry & Neurology Neurology
DX: G62.9 Polyneuropathy, unspecified (principal); L93.0 Discoid lupus erythematosus; Z79.899 Other long term (current) drug therapy; Z11.3 Encounter for screening for infections with a predominantly sexual mode of transmission; Z72.89 Other problems related to lifestyle